=== PATIENT | female | born 1985 | race Caucasian/White ===

== ENCOUNTER 2020-04-28 19:29 | Inpatient (IN) ==
[2020-04-28] MEDS ORDERED: MEPERIDINE 50 MG/1 ML VIAL IV PRN (19:39)
[2020-04-28] MEDS ORDERED: ONDANSETRON 4 MG/2 ML VIAL IV PRN (19:39)
[2020-04-28] MEDS ORDERED: BUTORPHANOL 2 MG/ML VIAL IV PRN (19:39)
[2020-04-28] MEDS ORDERED: AMPICILLIN 2,000 MG VIAL ONE (19:51)
[2020-04-28] MEDS ORDERED: AMPICILLIN INJ 2,000 MG in SODIUM CHLORIDE 0.9% 100 ML IV ONE (20:00)
[2020-04-28 20:03] LABS: Basophils % 0.2 % (0.0-0.8); Eosinophils # 0.1 10*3/uL (0.0-0.87); Eosinophils % 0.3 % (0.00-10.9); Hematocrit 34.6 VOL% (35.7-47.0); Hemoglobin 11.2 GM/DL (12.0-16.0); Immature Granulocytes % 0.9 %; Immature Granulocytes Absolute 0.13 #; Lymphocytes # 1.8 10*3/uL (1.4-4.0); Lymphocytes % 11.7 % (21.3-54.2); Mean Corpuscular HGB Conc 32.4 GM/DL (32-36); Mean Corpuscular Volume 95.3 FL (87-102); Mean Platelet Volume 11.1 FL (9.6-12.0); Monocytes % 6.7 % (1.7-12.7); Neutrophils % 80.2 % (38.7-73.9); Platelet Count 208 T/CUMM (130-400); Red Blood Count 3.63 MC/CUMM (3.8-5.5); Red Cell Distribution Width 13.1 % (9.3-17.3)
[2020-04-28] MEDS: LACTATED RINGERS 1,000 ML IV SCH ×2 (20:05→21:49)
[2020-04-28 20:15] LABS: Alanine Aminotransferase 14 U/L (13-56); Albumin 2.7 G/DL (3.4-5.0); Alkaline Phosphatase 142 U/L (45-117); Aspartate Amino Transferase 16 U/L (0-37); Bilirubin,Total < 0.39 MG/DL (0.2-1.0); Blood Urea Nitrogen 13 MG/DL (7-18); Calcium 8.6 MG/DL (8.5-10.1); Estimated Glom Filtration Rate 150 ML/MIN; Glucose 79 MG/DL (74-106); Osmolality,Calculated 271.8 MOS/KG (273-304)
[2020-04-28] MEDS ORDERED: ePHEDrine 50 MG/ML AMP ONE (20:44)
[2020-04-28] MEDS ORDERED: CITRIC ACID/SODIUM CITRATE 30 ML UDCUP ONE (20:44)
[2020-04-28] MEDS ORDERED: ONDANSETRON 4 MG/2 ML VIAL IV ONE (20:44)
[2020-04-28] MEDS ORDERED: NALOXONE 0.4 MG/ML VIAL IV PRN (20:44)
[2020-04-28] MEDS ORDERED: LACTATED RINGERS 250 ML IV PRN (20:44)
[2020-04-28] MEDS ORDERED: ePHEDrine 50 MG/ML AMP IV PRN (20:44)
[2020-04-28] MEDS ORDERED: FAMOTIDINE 20 MG/2 ML VIAL IV ONE (20:45)
[2020-04-28] MEDS ORDERED: fentaNYL 2 MCG/ROPIV 0.2% EPID 100 ML EPIDURAL ONE (20:45)
[2020-04-28] MEDS ORDERED: CITRIC ACID/SODIUM CITRATE 30 ML UDCUP PO ONE (20:47)
[2020-04-28] MEDS ORDERED: fentaNYL 2 MCG/ROPIV 0.2% EPID 100 ML EPIDURAL SCH (21:00)
[2020-04-29] MEDS: AMPICILLIN INJ 1,000 MG in SODIUM CHLORIDE 0.9% 100 ML IV SCH ×5 (00:43→16:58)
[2020-04-29 05:05] LABS: Apearance,Urine CLEAR (Clear); Bacteria,Urine Occasional /HPF (Few); Bilirubin,Urine Negative (Negative); Blood, Urine Negative (Negative); Glucose,Urine (UA) Negative (Negative); Ketones,Urine 20 mg/dL (Negative); Mucus,Urine Occasional /LPF (Occasional); Nitrite,Urine Negative (Negative); Protein,Urine 100 MG/DL; RBC,Urine 1 /HPF (0-4); Squamous Epithelial Cell,Urine Occasional /HPF (0-10); Urine Color Yellow (Yellow); Urine Specific Gravity 1.027 (1.001-1.035); Urine Urobilinogen < 2.0 EU/DL (0.2-1.0); WBC,Urine 1 /HPF (0-6)
[2020-04-29] MEDS ORDERED: OXYTOCIN/LR 0 UNIT/0 ML BAG IV ONE (09:17)
[2020-04-29] MEDS ORDERED: miSOPROStoL 200 MCG TABLET ONE ×2 (09:17→19:19)
[2020-04-29] MEDS ORDERED: METHYLERGONOVINE 0.2 MG/1 ML AMP ONE ×2 (09:18→19:20)
[2020-04-29] MEDS ORDERED: CARBOPROST TROMETHAMINE 250 MCG/ML AMP IM ONE ×2 (09:18→19:20)
[2020-04-29] MEDS: LACTATED RINGERS 1,000 ML IV SCH (09:55)
[2020-04-29] MEDS ORDERED: diphenhydrAMINE 50 MG/1 ML VIAL IV ONE (13:03)
[2020-04-29] MEDS ORDERED: SODIUM CHLORIDE 0.9% 0 ML IV ONE (16:55)
[2020-04-29] MEDS ORDERED: OXYTOCIN/LR 20 UNIT/1,000 ML BAG IV ONE ×2 (19:19→21:42)
[2020-04-29] MEDS ORDERED: TRANEXAMIC ACID 1,000 MG/10 ML VIAL ONE (19:19)
[2020-04-29] MEDS ORDERED: SODIUM CHLORIDE 0.9% 100 ML IV ONE (19:20)
[2020-04-29] MEDS ORDERED: LIDOCAINE 1% 50 ML VIAL ONE (19:23)
[2020-04-29] MEDS ORDERED: BENZOCAINE 20%/MENTHOL 0.5% SPRAY 56 GM CAN TOP PRN (21:42)
[2020-04-29] MEDS ORDERED: oxyCODONE/ACETAMINOPHEN 5-325 MG TABLET PO PRN ×2 (21:42)
[2020-04-29] MEDS ORDERED: BISACODYL 10 MG SUPP RECTAL PRN (21:42)
[2020-04-29] MEDS ORDERED: IBUPROFEN 800 MG TABLET PO PRN (21:42)
[2020-04-29] MEDS ORDERED: WITCH HAZEL PADS 100/JAR TOP PRN (21:42)
[2020-04-29] MEDS ORDERED: HYDROCORTISONE 2.5% RECTAL CREAM 30 GM TUBE TOP PRN (21:42)
[2020-04-29] MEDS ORDERED: ACETAMINOPHEN 325 MG TABLET PO PRN (21:42)
[2020-04-29] MEDS ORDERED: LANOLIN 50% CREAM 0.3 OZ TUBE TOP PRN (21:42)
[2020-04-30 03:16] LABS: Basophils % 0.1 % (0.0-0.8); Hematocrit 27.4 VOL% (35.7-47.0); Hemoglobin 9.1 GM/DL (12.0-16.0); Immature Granulocytes % 0.6 %; Immature Granulocytes Absolute 0.11 #; Lymphocytes # 1.2 10*3/uL (1.4-4.0); Lymphocytes % 6.4 % (21.3-54.2); Mean Corpuscular HGB Conc 33.2 GM/DL (32-36); Mean Corpuscular Volume 93.8 FL (87-102); Mean Platelet Volume 11.7 FL (9.6-12.0); Monocytes % 5.8 % (1.7-12.7); Neutrophils % 87.1 % (38.7-73.9); Platelet Count 178 T/CUMM (130-400); Red Blood Count 2.92 MC/CUMM (3.8-5.5); Red Cell Distribution Width 13.5 % (9.3-17.3); White Blood Count 18.2 T/CUMM (4-12)
[2020-04-30] MEDS: DOCUSATE SODIUM 100 MG CAPSULE PO SCH ×2 (08:29→20:53)
[2020-04-30] MEDS: MULTIVITAMIN (PRENATAL) TABLET PO SCH (08:29)
[2020-05-01 07:36] VITALS: BP 114/81
[2020-05-01] MEDS ORDERED: DIPH/TET/ACEL PERT BOOSTER VACCINE 0.5 ML VIAL IM ONE (09:30)
[2020-05-01] MEDS: DOCUSATE SODIUM 100 MG CAPSULE PO SCH (10:15)
[2020-05-01] MEDS: MULTIVITAMIN (PRENATAL) TABLET PO SCH (10:15)
== END 2020-05-01 12:15 | disposition home or self-care (01) | DRG 806 ==
LOC: N.LDOUT 19:29 → N.LD 19:31 → N.OB 04-30 01:27
PROVIDERS: ADMIT Obstetrics & Gynecology; ATTEND Obstetrics & Gynecology